=== PATIENT | female | born 1990 | race African-American/Black ===

== ENCOUNTER 2021-05-24 13:49 | Emergency (ER) | payer MEDICAID ==
[~2021-05-24] VITALS: Ht 172.7 cm; Wt 70.0 kg
[2021-05-24] MEDS ORDERED: ALBUTEROL (0.083%) 2.5MG/3ML NEB HHN ONE (15:00)
[2021-05-24] MEDS ORDERED: IPRATROPIUM BROMIDE (0.02%) 0.5MG/2.5ML NEB HHN ONE (15:00)
[2021-05-24] MEDS ORDERED: ACETAMINOPHEN 325MG TABLET PO STA (15:26)
[2021-05-24] MEDS ORDERED: SODIUM CHLORIDE 0.9% 1,000 ML IV ONE (15:30)
[2021-05-24 15:49] LABS: BASOPHILS % 0.7 % (0.0-2.0); EOSINOPHILS % 0.2 % (0.0-5.0); HEMATOCRIT. 34.4 % (36.0-48.0); HEMOGLOBIN. 10.4 g/dL (12.0-16.0); LYMPHOCYTES % 25.1 % (20.0-50.0); MEAN CORPUSCULAR HEMOGLOBIN 20.5 pg (28.0-32.0); MEAN CORPUSCULAR VOLUME 67.9 fL (81.0-99.0); MONOCYTES % 12.9 % (2.0-8.0); NEUTROPHILS % 61.1 % (40.0-76.0); PLATELET 266 x1000/uL (130-400); RED BLOOD CELL COUNT 5.07 mill/uL (4.2-5.4); RED CELL DISTRIBUTION WIDTH 20.1 % (11.6-14.6)
[2021-05-24 15:58] LABS: CHLORIDE 98 mEq/L (98-107)
[2021-05-24 16:02] LABS: ETHANOL BLOOD < 10 mg/dL
[2021-05-24 16:08] LABS: PLATELET ESTIMATE NORMAL
[2021-05-24 16:13] LABS: HCG SCREEN NEGATIVE
[2021-05-24] MEDS ORDERED: IPRATROPIUM/ALBUTEROL 0.5-3(2.5)MG/3ML NEB HHN ONE (16:30)
[2021-05-24] MEDS ORDERED: P20 MT (19:40)
[2021-05-24 20:22] VITALS: BP 110/69
== END 2021-05-24 20:45 | disposition home or self-care (01) ==
LOC: ER 14:07
DX: J45.901 Unspecified asthma with (acute) exacerbation (principal); F17.200 Nicotine dependence, unspecified, uncomplicated; E11.9 Type 2 diabetes mellitus without complications; I10 Essential (primary) hypertension
CPT/HCPCS: 36415; 71045; 71275; 80053; 80320; 83880; 84484; 84703; 85025; 85379; 93005; 94640; 99285; J7030; Z7610; G0480

== ENCOUNTER 2022-01-28 20:43 | Emergency (ER) | payer MEDICAID, OTHER ==
[~2022-01-28] VITALS: Ht 165.1 cm; Wt 65.0 kg
[~2022-01-28 20:43] MED LIST: P20 MT
[2022-01-28] MEDS ORDERED: ONDANSETRON HCL 4MG/2ML INJ IV STA (22:16)
[2022-01-28] MEDS ORDERED: MORPHINE SULFATE 4 MG/ML CPJ (NOT FOR IM USE) IV STA (22:16)
[2022-01-28] MEDS ORDERED: FAMOTIDINE 20MG/2ML VIAL IV STA (22:16)
[2022-01-28] MEDS ORDERED: SODIUM CHLORIDE 0.9% 1,000 ML IV ONE (22:30)
[2022-01-28 22:53] LABS: BG BASE EXCESS -4.3 mmol/L (-2.0-2.0); BG CARBOXYHEMOGLOBIN 2.2 % (0.5-1.5); BG DEOXYHEMOGLOBIN 1.8 % (0.0-5.0); BG FRACTION INSPIRED OXYGEN 21; BG HCO3 ACT 18.3 mmol/L (22.0-26.0); BG OXYGEN SATURATION 98.2 % (92.0-98.5); BG PCO2 26.2 mmHg (35.0-45.0); BG PH 7.462 (7.350-7.450); BG PO2 115.7 mmHg (75.0-100.0); BG SAMPLE SITE LEFT BRACHIAL; BG TOTAL HEMOGLOBIN 10.8 g/dL (12.0-18.0); BG VENT MODE ROOM AIR
[2022-01-28] MEDS ORDERED: ONDANSETRON HCL 4MG/2ML INJ IM ONE (23:00)
[2022-01-28] MEDS ORDERED: MORPHINE SULFATE 10 MG/ML CPJ IM NR (23:00)
[2022-01-28] MEDS ORDERED: FAMOTIDINE 20MG TABLET PO NR (23:00)
[2022-01-28 23:12] LABS: CHLORIDE 107 mEq/L (98-107)
[2022-01-28 23:20] LABS: BASOPHILS % 0.5 % (0.0-2.0); BETA HYDROXYBUTYRATE 0.1 mMol/L (0.0-0.3); EOSINOPHILS % 2.4 % (0.0-5.0); ETHANOL BLOOD < 10 mg/dL; HEMATOCRIT. 33.4 % (36.0-48.0); HEMOGLOBIN. 10.2 g/dL (12.0-16.0); LYMPHOCYTES % 18.4 % (20.0-50.0); MEAN CORPUSCULAR HEMOGLOBIN 19.2 pg (28.0-32.0); MEAN CORPUSCULAR VOLUME 63.2 fL (81.0-99.0); MEAN PLATELET VOLUME 8.4 fl (7.4-10.4); MONOCYTES % 5.7 % (2.0-8.0); PLATELET 319 x1000/uL (130-400); RED BLOOD CELL COUNT 5.28 mill/uL (4.2-5.4)
[2022-01-28 23:21] LABS: HCG SCREEN NEGATIVE
[2022-01-28 23:24] LABS: PLATELET ESTIMATE NORMAL
[2022-01-29] MEDS ORDERED: POTASSIUM CHLORIDE 20MEQ TABLET SR PO NR
[2022-01-29] MEDS ORDERED: ONDANSETRON HCL 4MG/2ML INJ IV STA (02:35)
[2022-01-29] MEDS ORDERED: KETOROLAC 30MG/ML VIAL IV STA (02:35)
[2022-01-29] MEDS ORDERED: SODIUM CHLORIDE 0.9% 1,000 ML IV ONE (02:45)
[2022-01-29 05:44] LABS: CLARITY URINE CLEAR (CLEAR); COLOR URINE YELLOW (YELLOW); KETONES URINE 3+ (NEGATIVE); LEUKOCYTE ESTERASE URINE NEGATIVE (NEGATIVE); NITRITE URINE NEGATIVE (NEGATIVE); OCCULT BLOOD URINE NEGATIVE (NEGATIVE); PROTEIN URINE TRACE (NEGATIVE); SPECIFIC GRAVITY URINE 1.026 (1.005-1.030); UROBILINOGEN URINE 0.2 E.U./dL (0.2-1.0)
[2022-01-29 05:58] LABS: *AMPHETAMINES SCREEN URINE NEGATIVE (NEGATIVE); *BARBITURATES SCREEN URINE NEGATIVE (NEGATIVE); *BENZODIAZEPINES SCREEN URINE NEGATIVE (NEGATIVE); *COCAINE SCREEN URINE NEGATIVE (NEGATIVE); METHADONE URINE SCREEN NEGATIVE (NEGATIVE); PHENCYCLIDINE URINE SCREEN NEGATIVE (NEGATIVE)
[2022-01-29 06:00] VITALS: BP 105/76
[2022-01-29 06:09] LABS: CANNABINOID URINE SCREEN PRESUMTIVE POSITIVE (NEGATIVE); OPIATES URINE SCREEN PRESUMTIVE POSITIVE (NEGATIVE)
[2022-01-29] MEDS ORDERED: INSULIN REGULAR (HUMULIN R) 300UNITS/3ML VIAL SUBCUT ONE (06:15)
== END 2022-01-29 08:21 | disposition short-term general hospital (02) ==
LOC: ER 20:43
DX: R10.13 Epigastric pain (principal); E87.6 Hypokalemia; D50.9 Iron deficiency anemia, unspecified; N20.0 Calculus of kidney
CPT/HCPCS: 36415; 36600; 71045; 74176; 80053; 80305; 80320; 81003; 82010; 82375; 82805; 82962; 83690; 84703; 85025; 93005; 96361; 96372; 96374; 96375; 96376; 99285; J1815; J1885; J2270; J2405; J3490; J7030; Z7610; G0480

== ENCOUNTER 2022-08-20 16:55 | Emergency (ER) | payer MEDICAID, OTHER ==
[~2022-08-20] VITALS: Ht 165.1 cm; Wt 70.0 kg
[2022-08-20 17:02] VITALS: BP 153/114
== END 2022-08-20 20:20 | disposition left against medical advice (07) ==
LOC: ER 16:55
DX: Z53.21 Procedure and treatment not carried out due to patient leaving prior to being seen by health care provider (principal)
CPT/HCPCS: 99281

== ENCOUNTER 2023-10-12 23:17 | Inpatient (IN) | payer MEDICAID, OTHER ==
[~2023-10-12] VITALS: Ht 170.2 cm; Wt 73.5 kg
[2023-10-12 23:20] VITALS: O2SAT 100
[2023-10-13] VITALS (33 sets, daily range): BP systolic 94–143; BP diastolic 59–96; PULSE 106–118; RESP 13–32; TEMP 98–98.8
[2023-10-13 00:40] LABS: HEMATOCRIT. 40.8 % (36.0-48.0); HEMOGLOBIN. 11.8 g/dL (12.0-16.0); MEAN CORPUSCULAR HEMOGLOBIN 25.2 pg (28.0-32.0); MEAN CORPUSCULAR HGB CONC 28.9 g/dL (31.0-37.0); MEAN CORPUSCULAR VOLUME 87.2 fL (81.0-99.0); MEAN PLATELET VOLUME 8.7 fl (7.4-10.4); PLATELET 398 x1000/uL (130-400); RED BLOOD CELL COUNT 4.68 mill/uL (4.2-5.4); RED CELL DISTRIBUTION WIDTH 16.3 % (11.6-14.6); WHITE BLOOD COUNT 24.3 x1000/uL (4.5-11.0)
[2023-10-13 00:41] LABS: DIFFERENTIAL COMMENT 1
[2023-10-13 00:47] LABS: CHLORIDE 98 mEq/L (98-107); POTASSIUM 5.4 mEq/L (3.5-5.1); SODIUM 126 mEq/L (136-145)
[2023-10-13 00:49] LABS: CALCIUM 10.4 mg/dL (8.7-10.4)
[2023-10-13 00:53] LABS: CREATININE 1.4 mg/dL (0.6-1.0)
[2023-10-13 00:54] LABS: UREA NITROGEN BLOOD 15 mg/dL (9-23)
[2023-10-13 00:55] LABS: ALANINE AMINOTRANSFERASE 22 IU/L (10-49); ALBUMIN 4.4 g/dL (3.2-4.8); ASPARTATE AMINOTRANSFERASE 27 IU/L (<34)
[2023-10-13 00:56] LABS: BILIRUBIN TOTAL 0.2 mg/dL (0.1-1.0); PROTEIN TOTAL 7.6 g/dL (6.0-8.3)
[2023-10-13 00:58] LABS: BILIRUBIN DIRECT < 0.1 mg/dL (<=3.0); ETHANOL BLOOD < 10 mg/dL (<10); TROPONIN I HIGH SENSITIVITY < 4 ng/L (3.0-34)
[2023-10-13 01:01] LABS: CARBON DIOXIDE < 10 mEq/L (21-32)
[2023-10-13 01:02] LABS: GLUCOSE 634 mg/dL (70-105)
[2023-10-13] MEDS: SODIUM CHLORIDE 0.9% 1,000 ML IV ONE ×3 (01:03→02:04)
[2023-10-13 01:04] LABS: HCG SCREEN NEGATIVE
[2023-10-13 01:05] LABS: BG BASE EXCESS -25.1 mmol/L (-2.0-2.0); BG CARBOXYHEMOGLOBIN 0.5 % (0.5-1.5); BG DEOXYHEMOGLOBIN 1.4 % (0.0-5.0); BG FRACTION INSPIRED OXYGEN 32; BG HCO3 ACT 2.8 mmol/L (22.0-26.0); BG METHEMOGLOBIN 0.3 % (0.0-1.5); BG OXYGEN SATURATION 98.6 % (92.0-98.5); BG OXYHEMOGLOBIN 97.8 % (94.0-97.0); BG PO2 146.3 mmHg (75.0-100.0); BG SAMPLE SITE RIGHT RADIAL; BG TOTAL HEMOGLOBIN 12.5 g/dL (12.0-18.0); BG VENT MODE NASAL CANNULA
[2023-10-13] MEDS: ONDANSETRON HCL 4MG/2ML INJ IV ONE (01:10)
[2023-10-13] MEDS: FAMOTIDINE 20MG/2ML VIAL IV ONE (01:10)
[2023-10-13] MEDS ORDERED: KCL 20MEQ/100ML PREMIX 100 ML IV PRN (01:30)
[2023-10-13] MEDS ORDERED: DEXTROSE 50% WATER 50ML SYRINGE IV PRN ×3 (01:30→15:45)
[2023-10-13] MEDS ORDERED: BLOOD SUGAR DIAGNOSTIC STRIP TEST PRN ×3 (01:30→15:45)
[2023-10-13] MEDS ORDERED: INSULIN REGULAR 100U/100ML PMX 100 ML IV ONE (01:30)
[2023-10-13] MEDS ORDERED: DEXT 5%/0.9% NACL 1,000 ML IV SCH (01:30)
[2023-10-13] MEDS: INSULIN REGULAR 100U/100ML PMX 100 ML IV SCH (02:04)
[2023-10-13] MEDS: CEFTRIAXONE 1GM/50ML 50 ML IV NR (03:10)
[2023-10-13] MEDS: SODIUM CHLORIDE 0.9% 1,000 ML IV SCH ×3 (03:20→16:20)
[2023-10-13] MEDS: DEXT 5%/0.9% NACL 1,000 ML IV SCH ×2 (03:29→15:45)
[2023-10-13 04:37] LABS: OVALOCYTES 1+; PLATELET ESTIMATE NORMAL
[2023-10-13 04:38] LABS: TOXIC VACUOLATION 1+
[2023-10-13] MEDS: MORPHINE SULFATE 2 MG/ML CPJ (NOT FOR IM USE) IV NR (04:45)
[2023-10-13] MEDS: MORPHINE SULFATE 2 MG/ML CPJ (NOT FOR IM USE) IV ONE (05:49)
[2023-10-13 07:47] LABS: HEMATOCRIT. 39.3 % (36.0-48.0); HEMOGLOBIN. 12.3 g/dL (12.0-16.0); MEAN CORPUSCULAR HEMOGLOBIN 24.6 pg (28.0-32.0); MEAN CORPUSCULAR HGB CONC 31.3 g/dL (31.0-37.0); MEAN CORPUSCULAR VOLUME 78.7 fL (81.0-99.0); MEAN PLATELET VOLUME 8.1 fl (7.4-10.4); PLATELET 359 x1000/uL (130-400); RED BLOOD CELL COUNT 4.99 mill/uL (4.2-5.4); RED CELL DISTRIBUTION WIDTH 15.3 % (11.6-14.6); WHITE BLOOD COUNT 26.9 x1000/uL (4.5-11.0)
[2023-10-13 07:50] LABS: DIFFERENTIAL COMMENT 1
[2023-10-13 08:39] LABS: MICROCYTOSIS 1+; PLATELET ESTIMATE NORMAL
[2023-10-13 12:01] LABS: CHLORIDE 115 mEq/L (98-107); POTASSIUM 4.1 mEq/L (3.5-5.1)
[2023-10-13 12:02] LABS: CHLORIDE 114 mEq/L (98-107); POTASSIUM 4.1 mEq/L (3.5-5.1)
[2023-10-13 12:03] LABS: CALCIUM 8.7 mg/dL (8.7-10.4)
[2023-10-13 12:08] LABS: CREATININE 0.8 mg/dL (0.6-1.0); GLUCOSE 245 mg/dL (70-105); UREA NITROGEN BLOOD 8 mg/dL (9-23)
[2023-10-13 12:10] LABS: PHOSPHORUS 1.7 mg/dL (2.5-4.9)
[2023-10-13 13:05] LABS: SODIUM 136 mEq/L (136-145)
[2023-10-13 13:55] LABS: SODIUM 135 mEq/L (136-145)
[2023-10-13] MEDS: PIPERACILLIN/TAZO 3.375G/50ML 50 ML IV SCH (14:39)
[2023-10-13 14:46] LABS: BG BASE EXCESS -18.2 mmol/L (-2.0-2.0); BG CARBOXYHEMOGLOBIN 0.1 % (0.5-1.5); BG DEOXYHEMOGLOBIN 1.5 % (0.0-5.0); BG FRACTION INSPIRED OXYGEN 28; BG HCO3 ACT 7.5 mmol/L (22.0-26.0); BG METHEMOGLOBIN 0.7 % (0.0-1.5); BG OXYGEN SATURATION 98.5 % (92.0-98.5); BG OXYHEMOGLOBIN 97.7 % (94.0-97.0); BG PCO2 19.3 mmHg (35.0-45.0); BG PH 7.208 (7.350-7.450); BG PO2 147.4 mmHg (75.0-100.0); BG SAMPLE SITE LEFT BRACHIAL; BG TOTAL HEMOGLOBIN 13.4 g/dL (12.0-18.0); BG VENT MODE NASAL CANNULA
[2023-10-13 15:39] LABS: CARBON DIOXIDE < 10 mEq/L (21-32)
[2023-10-13 15:43] LABS: CARBON DIOXIDE < 10 mEq/L (21-32)
[2023-10-13] MEDS ORDERED: MAGNESIUM 2 G PREMIX 50 ML IV PRN (15:45)
[2023-10-13] MEDS ORDERED: SODIUM PHOSPHATE 30 MMOL in SODIUM CHLORIDE 0.9% 490 ML IV PRN (15:45)
[2023-10-13] MEDS ORDERED: POTASSIUM CHLORIDE 40 MEQ in SODIUM CHLORIDE 0.9% 230 ML IV PRN (15:45)
[2023-10-13] MEDS: POTASSIUM PHOSPHATE 15 MMOL in DEXT 5% WATER 245 ML IV NR (15:50)
[2023-10-13] MEDS: MAGNESIUM 2 G PREMIX 50 ML IV NR (15:50)
[2023-10-13] MEDS: BLOOD SUGAR DIAGNOSTIC STRIP TEST SCH ×2 (16:03→18:05)
[2023-10-13 18:25] LABS: CARBON DIOXIDE 12 mEq/L (21-32); CHLORIDE 115 mEq/L (98-107); POTASSIUM 3.8 mEq/L (3.5-5.1); SODIUM 138 mEq/L (136-145)
[2023-10-13 18:26] LABS: CALCIUM 8.5 mg/dL (8.7-10.4)
[2023-10-13 18:30] LABS: CREATININE 0.8 mg/dL (0.6-1.0)
[2023-10-13 18:31] LABS: GLUCOSE 290 mg/dL (70-105); UREA NITROGEN BLOOD 7 mg/dL (9-23)
[2023-10-13 18:33] LABS: PHOSPHORUS 1.6 mg/dL (2.5-4.9)
[2023-10-13] MEDS: PANTOPRAZOLE SODIUM 40 MG/VIAL IV SCH (18:52)
[2023-10-13] MEDS: KCL 20MEQ/100ML PREMIX 100 ML IV PRN (18:52)
[2023-10-13] MEDS: DEXT 5%/0.9% NACL 1,000 ML IV PRN (19:29)
[2023-10-13 21:36] LABS: CHLORIDE 116 mEq/L (98-107); POTASSIUM 3.6 mEq/L (3.5-5.1); SODIUM 139 mEq/L (136-145)
[2023-10-13 21:37] LABS: CARBON DIOXIDE 15 mEq/L (21-32)
[2023-10-13 21:38] LABS: CALCIUM 8.3 mg/dL (8.7-10.4)
[2023-10-13 21:42] LABS: CREATININE 0.8 mg/dL (0.6-1.0); GLUCOSE 212 mg/dL (70-105); UREA NITROGEN BLOOD 7 mg/dL (9-23)
[2023-10-13 21:44] LABS: PHOSPHORUS 1.5 mg/dL (2.5-4.9)
[2023-10-13] MEDS ORDERED: INSULIN REGULAR 100U/100ML PMX 100 ML IV SCH (22:00)
[2023-10-13] MEDS: SODIUM PHOSPHATE 15 MMOL in SODIUM CHLORIDE 0.9% 245 ML IV PRN (23:41)
[2023-10-14] VITALS (91 sets, daily range): BP systolic 105–154; BP diastolic 51–126; PULSE 82–118; RESP 0–35; TEMP 97.9–99.2
[2023-10-14] MEDS: INSULIN REGULAR 100U/100ML PMX 100 ML IV SCH (00:16)
[2023-10-14] MEDS: ACETAMINOPHEN 325MG TABLET PO PRN (00:44)
[2023-10-14 02:16] LABS: CHLORIDE 118 mEq/L (98-107); POTASSIUM 3.3 mEq/L (3.5-5.1); SODIUM 142 mEq/L (136-145)
[2023-10-14 02:17] LABS: CARBON DIOXIDE 16 mEq/L (21-32)
[2023-10-14 02:28] LABS: PHOSPHORUS 0.6 mg/dL (2.5-4.9)
[2023-10-14] MEDS: SODIUM PHOSPHATE 30 MMOL in SODIUM CHLORIDE 0.9% 490 ML IV PRN (03:46)
[2023-10-14] MEDS: MAGNESIUM 1 G PREMIX 100 ML IV PRN (03:46)
[2023-10-14 04:47] LABS: HEMATOCRIT. 32.4 % (36.0-48.0); HEMOGLOBIN. 10.4 g/dL (12.0-16.0); MEAN CORPUSCULAR HGB CONC 31.9 g/dL (31.0-37.0); MEAN CORPUSCULAR VOLUME 78.3 fL (81.0-99.0); MEAN PLATELET VOLUME 7.9 fl (7.4-10.4); PLATELET 322 x1000/uL (130-400); RED BLOOD CELL COUNT 4.14 mill/uL (4.2-5.4); RED CELL DISTRIBUTION WIDTH 15.5 % (11.6-14.6); WHITE BLOOD COUNT 15.9 x1000/uL (4.5-11.0)
[2023-10-14 04:54] LABS: CHLORIDE 117 mEq/L (98-107); POTASSIUM 3.8 mEq/L (3.5-5.1); SODIUM 141 mEq/L (136-145)
[2023-10-14 04:55] LABS: CALCIUM 7.9 mg/dL (8.7-10.4); CARBON DIOXIDE 16 mEq/L (21-32)
[2023-10-14 05:00] LABS: CREATININE 0.6 mg/dL (0.6-1.0); GLUCOSE 187 mg/dL (70-105); UREA NITROGEN BLOOD 5 mg/dL (9-23)
[2023-10-14 05:02] LABS: PHOSPHORUS 1.6 mg/dL (2.5-4.9)
[2023-10-14 06:23] LABS: DIFFERENTIAL COMMENT 1
[2023-10-14 07:40] LABS: *AMPHETAMINES SCREEN URINE NEGATIVE (NEGATIVE); *BARBITURATES SCREEN URINE NEGATIVE (NEGATIVE); *BENZODIAZEPINES SCREEN URINE NEGATIVE (NEGATIVE); *COCAINE SCREEN URINE NEGATIVE (NEGATIVE); METHADONE URINE SCREEN NEGATIVE (NEGATIVE); OPIATES URINE SCREEN NEGATIVE (NEGATIVE)
[2023-10-14 07:41] LABS: CANNABINOID URINE SCREEN NEGATIVE (NEGATIVE); ECSTASY MDMA SCREEN URINE NEGATIVE (NEGATIVE); PHENCYCLIDINE URINE SCREEN NEGATIVE (NEGATIVE)
[2023-10-14 09:11] LABS: CHLORIDE 117 mEq/L (98-107); POTASSIUM 3.5 mEq/L (3.5-5.1); SODIUM 139 mEq/L (136-145)
[2023-10-14 09:12] LABS: CARBON DIOXIDE 15 mEq/L (21-32)
[2023-10-14 09:19] LABS: PHOSPHORUS 1.9 mg/dL (2.5-4.9)
[2023-10-14 09:54] LABS: MICROCYTOSIS 1+; PLATELET ESTIMATE NORMAL
[2023-10-14 09:55] LABS: ANISOCYTOSIS 1+
[2023-10-14 12:15] LABS: CALCIUM 7.9 mg/dL (8.7-10.4); CARBON DIOXIDE 16 mEq/L (21-32); CHLORIDE 114 mEq/L (98-107); POTASSIUM 3.6 mEq/L (3.5-5.1); SODIUM 137 mEq/L (136-145)
[2023-10-14 12:20] LABS: CREATININE 0.6 mg/dL (0.6-1.0); GLUCOSE 182 mg/dL (70-105)
[2023-10-14 12:23] LABS: PHOSPHORUS 1.1 mg/dL (2.5-4.9)
[2023-10-14 12:25] LABS: UREA NITROGEN BLOOD < 5 mg/dL (9-23)
[2023-10-14] MEDS: MAGNESIUM/ALUMINUM HYDROXIDE/SIMETHICONE 30ML UDC PO PRN (17:00)
[2023-10-14] MEDS: OMEPRAZOLE 20MG CAPSULE EXTENDED RELEASE PO SCH (17:00)
[2023-10-14] MEDS: KETOROLAC 30MG/ML VIAL IV PRN (17:06)
[2023-10-14 17:48] LABS: CHLORIDE 114 mEq/L (98-107); POTASSIUM 3.2 mEq/L (3.5-5.1); SODIUM 136 mEq/L (136-145)
[2023-10-14 17:49] LABS: CALCIUM 7.3 mg/dL (8.7-10.4); CARBON DIOXIDE 16 mEq/L (21-32)
[2023-10-14 17:54] LABS: CREATININE 0.5 mg/dL (0.6-1.0); GLUCOSE 222 mg/dL (70-105)
[2023-10-14 18:05] LABS: UREA NITROGEN BLOOD < 5 mg/dL (9-23)
[2023-10-14 18:06] LABS: PHOSPHORUS 0.7 mg/dL (2.5-4.9)
[2023-10-14] MEDS ORDERED: DEXTROSE 50% WATER 50ML SYRINGE IV PRN (18:15)
[2023-10-14] MEDS: INSULIN GLARGINE 100 UNITS/ML SUBCUT SCH (18:32)
[2023-10-14] MEDS: BLOOD SUGAR DIAGNOSTIC STRIP TEST SCH (21:43)
[2023-10-14 21:45] LABS: CHLORIDE 110 mEq/L (98-107); POTASSIUM 3.6 mEq/L (3.5-5.1); SODIUM 136 mEq/L (136-145)
[2023-10-14 21:46] LABS: CARBON DIOXIDE 18 mEq/L (21-32)
[2023-10-14 21:53] LABS: PHOSPHORUS 1.2 mg/dL (2.5-4.9)
[2023-10-14] MEDS: INSULIN LISPRO 100 UNITS/ML SUBCUT SCH (21:54)
[2023-10-14 22:17] LABS: CLARITY URINE CLEAR (CLEAR); COLOR URINE RED (YELLOW); GLUCOSE URINE 3+ (NEGATIVE); KETONES URINE 1+ (NEGATIVE); LEUKOCYTE ESTERASE URINE NEGATIVE (NEGATIVE); NITRITE URINE NEGATIVE (NEGATIVE); OCCULT BLOOD URINE 3+ (NEGATIVE); PROTEIN URINE TRACE (NEGATIVE); SPECIFIC GRAVITY URINE 1.022 (1.005-1.030); UROBILINOGEN URINE 0.2 E.U./dL (0.2-1.0)
[2023-10-14 22:46] LABS: BACTERIA URINE 1+; RBC URINE TNTC /hpf (0-2); SQUAMOUS EPITHELIAL CELL URINE 1+ /lpf (RARE/1+); WBC URINE 0-2 /hpf (0-2)
[2023-10-15] VITALS (47 sets, daily range): BP systolic 95–159; BP diastolic 75–117; PULSE 81–104; RESP 11–33; TEMP 98–99.3
[2023-10-15 05:41] LABS: CHLORIDE 112 mEq/L (98-107); POTASSIUM 3.2 mEq/L (3.5-5.1); SODIUM 137 mEq/L (136-145)
[2023-10-15 05:42] LABS: CALCIUM 7.4 mg/dL (8.7-10.4); CARBON DIOXIDE 19 mEq/L (21-32)
[2023-10-15 05:43] LABS: BASOPHILS % 0.3 % (0.0-2.0); DIFFERENTIAL COMMENT 0; EOSINOPHILS % 0.3 % (0.0-5.0); HEMATOCRIT. 28.5 % (36.0-48.0); HEMOGLOBIN. 9.1 g/dL (12.0-16.0); LYMPHOCYTES % 20.9 % (20.0-50.0); MEAN CORPUSCULAR HEMOGLOBIN 24.8 pg (28.0-32.0); MEAN CORPUSCULAR HGB CONC 31.9 g/dL (31.0-37.0); MEAN CORPUSCULAR VOLUME 77.8 fL (81.0-99.0); MEAN PLATELET VOLUME 7.9 fl (7.4-10.4); MONOCYTES % 12.5 % (2.0-8.0); PLATELET 262 x1000/uL (130-400); RED BLOOD CELL COUNT 3.67 mill/uL (4.2-5.4); RED CELL DISTRIBUTION WIDTH 15.3 % (11.6-14.6)
[2023-10-15 05:47] LABS: CREATININE 0.5 mg/dL (0.6-1.0); GLUCOSE 192 mg/dL (70-105)
[2023-10-15 05:49] LABS: UREA NITROGEN BLOOD < 5 mg/dL (9-23)
[2023-10-15 07:41] LABS: PHOSPHORUS 1.6 mg/dL (2.5-4.9)
[2023-10-15] MEDS: POTASSIUM CHLORIDE 40 MEQ in SODIUM CHLORIDE 0.9% 230 ML IV PRN (09:18)
[2023-10-15] MEDS: MAGNESIUM 2 G PREMIX 50 ML IV NR (11:00)
[2023-10-15] MEDS: ONDANSETRON HCL 4MG/2ML INJ IV PRN (13:37)
[2023-10-15] MEDS: METOCLOPRAMIDE HCL 10MG/2ML VIAL IV SCH (23:30)
[2023-10-16] VITALS (20 sets, daily range): BP systolic 98–169; BP diastolic 70–122; PULSE 77–124; RESP 8–34; TEMP 97.9–98.7
[2023-10-16 04:48] LABS: BASOPHILS % 0.4 % (0.0-2.0); DIFFERENTIAL COMMENT 0; EOSINOPHILS % 0.5 % (0.0-5.0); HEMATOCRIT. 28.1 % (36.0-48.0); HEMOGLOBIN. 9.3 g/dL (12.0-16.0); LYMPHOCYTES % 27.9 % (20.0-50.0); MEAN CORPUSCULAR HGB CONC 33.1 g/dL (31.0-37.0); MEAN CORPUSCULAR VOLUME 75.5 fL (81.0-99.0); MEAN PLATELET VOLUME 7.6 fl (7.4-10.4); MONOCYTES % 13.1 % (2.0-8.0); NEUTROPHILS % 58.1 % (40.0-76.0); PLATELET 280 x1000/uL (130-400); RED BLOOD CELL COUNT 3.72 mill/uL (4.2-5.4); WHITE BLOOD COUNT 10.4 x1000/uL (4.5-11.0)
[2023-10-16 04:52] LABS: CARBON DIOXIDE 24 mEq/L (21-32); CHLORIDE 108 mEq/L (98-107); SODIUM 138 mEq/L (136-145)
[2023-10-16 04:53] LABS: CALCIUM 7.8 mg/dL (8.7-10.4)
[2023-10-16 04:58] LABS: CREATININE 0.5 mg/dL (0.6-1.0); GLUCOSE 131 mg/dL (70-105)
[2023-10-16 05:31] LABS: UREA NITROGEN BLOOD < 5 mg/dL (9-23)
[2023-10-16 05:33] LABS: POTASSIUM 2.8 mEq/L (3.5-5.1)
[2023-10-16] MEDS: POTASSIUM CHLORIDE 20MEQ TABLET SR PO NR ×2 (11:03→12:30)
[2023-10-16] MEDS: MAGNESIUM 2 G PREMIX 50 ML IV NR (12:00)
[2023-10-16] MEDS: POTASSIUM PHOSPHATE 30 MMOL in SODIUM CHLORIDE 0.9% 490 ML IV NR (12:00)
[2023-10-16 16:11] LABS: POTASSIUM 3.8 mEq/L (3.5-5.1)
[2023-10-16 16:20] LABS: PHOSPHORUS 1.5 mg/dL (2.5-4.9)
[2023-10-16] MEDS: PANTOPRAZOLE 40MG DR TABLET PO NR (21:21)
[2023-10-17] VITALS (12 sets, daily range): BP systolic 118–165; BP diastolic 81–116; PULSE 84–118; RESP 13–23; TEMP 97.3–98.8
[2023-10-17] MEDS: PANTOPRAZOLE 40MG DR TABLET PO SCH (07:30)
[2023-10-17] MEDS: VANCOMYCIN 1.5GM/250ML 250 ML IV NR (14:00)
[2023-10-17] MEDS: VANCOMYCIN 1250MG in DEXTROSE 5% WATER 250ML IV SCH (20:50)
[2023-10-18] VITALS (13 sets, daily range): BP systolic 104–138; BP diastolic 75–99; PULSE 87–109; RESP 14–25; TEMP 97.2–98.5
[2023-10-18 07:42] LABS: BASOPHILS % 1.1 % (0.0-2.0); DIFFERENTIAL COMMENT 0; EOSINOPHILS % 2.2 % (0.0-5.0); HEMATOCRIT. 32.4 % (36.0-48.0); HEMOGLOBIN. 10.8 g/dL (12.0-16.0); LYMPHOCYTES % 25.1 % (20.0-50.0); MEAN CORPUSCULAR HEMOGLOBIN 24.8 pg (28.0-32.0); MEAN CORPUSCULAR HGB CONC 33.3 g/dL (31.0-37.0); MEAN CORPUSCULAR VOLUME 74.5 fL (81.0-99.0); MONOCYTES % 14.9 % (2.0-8.0); NEUTROPHILS % 56.7 % (40.0-76.0); PLATELET 484 x1000/uL (130-400); RED BLOOD CELL COUNT 4.34 mill/uL (4.2-5.4); RED CELL DISTRIBUTION WIDTH 15.6 % (11.6-14.6); WHITE BLOOD COUNT 11.9 x1000/uL (4.5-11.0)
[2023-10-18 07:53] LABS: CHLORIDE 104 mEq/L (98-107); POTASSIUM 3.9 mEq/L (3.5-5.1); SODIUM 137 mEq/L (136-145)
[2023-10-18 07:54] LABS: CALCIUM 8.5 mg/dL (8.7-10.4); CARBON DIOXIDE 23 mEq/L (21-32)
[2023-10-18 07:59] LABS: CREATININE 0.6 mg/dL (0.6-1.0); GLUCOSE 104 mg/dL (70-105)
[2023-10-18 08:06] LABS: UREA NITROGEN BLOOD < 5 mg/dL (9-23)
[2023-10-18] MEDS: DEXT 5%/0.45% NACL 1000ML 1,000 ML IV SCH (13:24)
[2023-10-18] MEDS: INSULIN GLARGINE 100 UNITS/ML SUBCUT NR (13:25)
[2023-10-18] MEDS ORDERED: LIDOCAINE HCL 1% 20ML VIAL (Pyxis) INJ ONE (16:00)
[2023-10-18] MEDS ORDERED: BUPIVACAINE HCL/PF 0.5% (5MG/ML) 10ML ONE (16:00)
[2023-10-18] MEDS ORDERED: FENTANYL CITRATE/PF 50MCG/ML 2ML VIAL ONE (19:32)
[2023-10-18] MEDS ORDERED: PROPOFOL 200MG/20ML VIAL IV ONE (19:32)
[2023-10-18] MEDS ORDERED: MIDAZOLAM HCL 2 MG/2 ML VIAL ONE (19:33)
[2023-10-18] MEDS ORDERED: FENTANYL CITRATE/PF 50MCG/ML 2ML VIAL IV PRN (19:45)
[2023-10-18] MEDS ORDERED: ONDANSETRON HCL 4MG/2ML INJ IV PRN (19:45)
[2023-10-18] MEDS ORDERED: HYDROMORPHONE HCL/PF 2MG/ML CPJ IV PRN (19:45)
[2023-10-19] VITALS (16 sets, daily range): BP systolic 106–148; BP diastolic 74–106; PULSE 87–128; RESP 8–25; TEMP 96.8–99
[2023-10-19 07:26] LABS: HEMATOCRIT 33.1 % (36.0-48.0); HEMOGLOBIN 10.8 g/dL (12.0-16.0); MEAN CORPUSCULAR HEMOGLOBIN 24.5 pg (28.0-32.0); MEAN CORPUSCULAR HGB CONC 32.5 g/dL (31.0-37.0); MEAN CORPUSCULAR VOLUME 75.3 fL (81.0-99.0); PLATELET 567 x1000/uL (130-400); RED CELL DISTRIBUTION WIDTH 15.7 % (11.6-14.6); WHITE BLOOD COUNT 13.1 x1000/uL (4.5-11.0)
[2023-10-19 07:40] LABS: POTASSIUM 4.4 mEq/L (3.5-5.1)
[2023-10-19 07:41] LABS: CALCIUM 8.6 mg/dL (8.7-10.4)
[2023-10-19 07:53] LABS: CREATININE 1.6 mg/dL (0.6-1.0)
[2023-10-19] MEDS: FAMOTIDINE 20MG TABLET PO SCH (09:40)
[2023-10-19] MEDS: SODIUM CHLORIDE 0.9% 1,000 ML IV SCH (18:47)
[2023-10-20] VITALS (10 sets, daily range): BP systolic 91–165; BP diastolic 61–107; PULSE 85–100; RESP 11–25; TEMP 98.1–99
[2023-10-20 07:10] LABS: HEMATOCRIT. 30.8 % (36.0-48.0); HEMOGLOBIN. 10.1 g/dL (12.0-16.0); MEAN CORPUSCULAR HEMOGLOBIN 24.9 pg (28.0-32.0); MEAN CORPUSCULAR HGB CONC 32.7 g/dL (31.0-37.0); MEAN CORPUSCULAR VOLUME 76.2 fL (81.0-99.0); MEAN PLATELET VOLUME 7.2 fl (7.4-10.4); PLATELET 533 x1000/uL (130-400); RED BLOOD CELL COUNT 4.04 mill/uL (4.2-5.4); RED CELL DISTRIBUTION WIDTH 15.5 % (11.6-14.6); WHITE BLOOD COUNT 10.9 x1000/uL (4.5-11.0)
[2023-10-20 07:12] LABS: DIFFERENTIAL COMMENT 1
[2023-10-20 07:13] LABS: CALCIUM 8.9 mg/dL (8.7-10.4); POTASSIUM 3.5 mEq/L (3.5-5.1)
[2023-10-20 07:19] LABS: CREATININE 1.3 mg/dL (0.6-1.0)
[2023-10-20 19:17] LABS: HYPOCHROMASIA 1+; MICROCYTOSIS 1+; PLATELET ESTIMATE INCREASED
[2023-10-21] VITALS: BP 116/79; PULSE 95; RESP 9
[2023-10-21 04:00] VITALS: BP 125/87; PULSE 85; RESP 9; TEMP 97.4
[2023-10-21 07:10] LABS: CHLORIDE 106 mEq/L (98-107); POTASSIUM 3.4 mEq/L (3.5-5.1); SODIUM 140 mEq/L (136-145)
[2023-10-21 07:11] LABS: CALCIUM 8.6 mg/dL (8.7-10.4); CARBON DIOXIDE 26 mEq/L (21-32)
[2023-10-21 07:16] LABS: CREATININE 1.3 mg/dL (0.6-1.0); GLUCOSE 86 mg/dL (70-105)
[2023-10-21 07:20] LABS: UREA NITROGEN BLOOD < 5 mg/dL (9-23)
[2023-10-21 08:00] VITALS: BP 139/103; PULSE 97; RESP 16; TEMP 98.6
[2023-10-21 12:17] VITALS: BP 140/81; PULSE 88; RESP 20; TEMP 98.1
[2023-10-21] MEDS: VANCOMYCIN 1GM/200ML PMX (BAXTER) IV SCH (13:12)
== END 2023-10-21 15:58 | disposition home health service (06) | DRG 363 ==
LOC: ER 23:17 → MICUNO 10-13 02:37 → EDBEDREQ 10-13 03:12 → MICUNO 10-13 14:59 → 5EST 10-16 11:55 → 6WST 10-21 11:55
PROVIDERS: ADMIT Internal Medicine; ATTEND Internal Medicine
PROC: 0HBU0ZX Excision of Left Breast, Open Approach, Diagnostic (ICD-10-PCS; principal; 2023-10-18)
DX: N61.1 Abscess of the breast and nipple (principal); A41.9 Sepsis, unspecified organism; E11.10 Type 2 diabetes mellitus with ketoacidosis without coma; E87.1 Hypo-osmolality and hyponatremia; J45.909 Unspecified asthma, uncomplicated; N18.9 Chronic kidney disease, unspecified; E11.22 Type 2 diabetes mellitus with diabetic chronic kidney disease; I12.9 Hypertensive chronic kidney disease with stage 1 through stage 4 chronic kidney disease, or unspecified chronic kidney disease; E86.0 Dehydration; E87.5 Hyperkalemia; Z79.4 Long term (current) use of insulin
CPT/HCPCS: 36415; 36600; 71045; 76641; 80048; 80051; 80076; 80202; 80305; 80320; 81003; 82375; 82805; 82962; 83036; 83735; 83880; 83930; 84100; 84132; 84145; 84484; 84703; 85025; 85027; 87070; 87075; 87077; 87186; 88305; 93005; 99291; A6261; C1893; C9113; J0696; J1815; J1885; J2250; J2270; J2405; J2543; J2704; J2765; J3010; J3370; J3475; J3480; J3490; J7030; J7040; J7050; J7060; G0480

== ENCOUNTER 2024-05-22 10:54 | Emergency (ER) | payer MEDICAID ==
[~2024-05-22] VITALS: Ht 157.5 cm; Wt 59.0 kg
[2024-05-22 11:00] VITALS: BP 129/97; PULSE 105; RESP 16; TEMP 98; O2SAT 100
[2024-05-22] MEDS ORDERED: DIAZEPAM 5 MG/ML 2ML SYR IV ONE (11:15)
[2024-05-22] MEDS ORDERED: SODIUM CHLORIDE 0.9% 1,000 ML IV ONE (11:15)
== END 2024-05-23 00:02 | disposition home or self-care (01) ==
LOC: ER 10:54
DX: R25.2 Cramp and spasm (principal); E11.9 Type 2 diabetes mellitus without complications; J45.909 Unspecified asthma, uncomplicated; F19.90 Other psychoactive substance use, unspecified, uncomplicated
CPT/HCPCS: 99283; J7030

== ENCOUNTER 2024-11-12 10:49 | Inpatient (IN) | payer MEDICAID ==
[~2024-11-12] VITALS: Ht 165.1 cm; Wt 58.1 kg
[~2024-11-12 10:49] MED LIST changes: +INSU100I28 SQ; +INSU100V34 SQ; +METF500S9 PO; +ONDA4TAB50 PO; -P20 MT
[2024-11-12 11:19] VITALS: PULSE 109; RESP 22; O2SAT 99
[2024-11-12] MEDS: IPRATROPIUM BROMIDE (0.02%) 0.5MG/2.5ML NEB HHN STA (11:19)
[2024-11-12] MEDS: ALBUTEROL (0.083%) 2.5MG/3ML NEB HHN STA (11:19)
[2024-11-12] MEDS: METHYLPREDNISOLONE SOD SUCC 125MG/2ML (ACT-O-VIAL) IV STA (11:47)
[2024-11-12] MEDS: MAGNESIUM 2 G PREMIX 50 ML IV ONE (11:47)
[2024-11-12 11:55] LABS: BASOPHILS % 0.8 % (0.0-2.0); EOSINOPHILS % 5.1 % (0.0-5.0); HEMATOCRIT. 34.9 % (36.0-48.0); HEMOGLOBIN. 10.7 g/dL (12.0-16.0); LYMPHOCYTES % 45.2 % (20.0-50.0); MEAN CORPUSCULAR HEMOGLOBIN 20.2 pg (28.0-32.0); MEAN CORPUSCULAR HGB CONC 30.5 g/dL (31.0-37.0); MEAN CORPUSCULAR VOLUME 66.2 fL (81.0-99.0); MEAN PLATELET VOLUME 8.8 fl (7.4-10.4); MONOCYTES % 7.3 % (2.0-8.0); NEUTROPHILS % 41.6 % (40.0-76.0); PLATELET 232 x1000/uL (130-400); RED BLOOD CELL COUNT 5.28 mill/uL (4.2-5.4); RED CELL DISTRIBUTION WIDTH 20.8 % (11.6-14.6); WHITE BLOOD COUNT 6.4 x1000/uL (4.5-11.0)
[2024-11-12 11:56] LABS: ADD RBC MORPHOLOGY YES; DIFFERENTIAL COMMENT 1
[2024-11-12 12:08] LABS: CHLORIDE 97 mEq/L (98-107); POTASSIUM 3.7 mEq/L (3.5-5.1); SODIUM 134 mEq/L (136-145)
[2024-11-12 12:09] LABS: CALCIUM 9.1 mg/dL (8.7-10.4); CARBON DIOXIDE 22 mEq/L (21-32)
[2024-11-12 12:14] LABS: CREATININE 0.8 mg/dL (0.6-1.0); GLUCOSE 353 mg/dL (70-105); UREA NITROGEN BLOOD 12 mg/dL (9-23)
[2024-11-12 12:16] LABS: TROPONIN I HIGH SENSITIVITY < 4 ng/L (3.0-34)
[2024-11-12 12:31] LABS: ANISOCYTOSIS 2+; HYPOCHROMASIA 2+; MICROCYTOSIS 3+; PLATELET ESTIMATE NORMAL
[2024-11-12 12:32] LABS: GIANT PLATELETS FEW
[2024-11-12 13:42] LABS: HCG SCREEN NEGATIVE
[2024-11-12 14:20] VITALS: BP 109/58; PULSE 118; RESP 20; TEMP 36.7; O2SAT 99
[2024-11-12] MEDS ORDERED: IPRATROPIUM/ALBUTEROL 0.5-3(2.5)MG/3ML NEB HHN PRN (14:30)
[2024-11-12 14:38] VITALS: BP 109/58; PULSE 118; RESP 20; TEMP 36.7
[2024-11-12] MEDS ORDERED: DEXTROSE 50% WATER 50ML SYRINGE IV PRN (14:45)
[2024-11-12] MEDS ORDERED: NALOXONE HCL 0.4MG/ML VIAL IV PRN (14:45)
[2024-11-12] MEDS: HYDROCODONE/ACETAMINOPHEN 5/325MG TABLET PO PRN (15:49)
[2024-11-12] MEDS: ONDANSETRON HCL 4MG/2ML INJ IV PRN (15:50)
[2024-11-12 16:00] VITALS: BP 112/64; PULSE 117; RESP 20; TEMP 36.6; O2SAT 100
[2024-11-12 16:05] LABS: TROPONIN I HIGH SENSITIVITY < 4 ng/L (3.0-34)
[2024-11-12] MEDS: INSULIN LISPRO 100 UNITS/ML SUBCUT SCH ×2 (16:50→16:54)
[2024-11-12] MEDS: INSULIN GLARGINE 100 UNITS/ML SUBCUT SCH (16:51)
[2024-11-12] MEDS: BLOOD SUGAR DIAGNOSTIC STRIP TEST SCH (16:53)
[2024-11-12] MEDS: ENOXAPARIN 40MG/0.4ML SYR SUBCUT SCH (16:53)
[2024-11-12] MEDS: ACETAMINOPHEN 325MG TABLET PO PRN (18:19)
[2024-11-12 20:00] VITALS: BP_SYST 130; BP_SYST 137; BP_DIAS 95; PULSE 98; RESP 18; TEMP 36.3; O2SAT 100
[2024-11-13] VITALS (7 sets, daily range): BP systolic 116–138; BP diastolic 74–100; PULSE 86–111; RESP 16–20; TEMP 35.8–36.9; O2SAT 95–100
[2024-11-13 00:32] LABS: CREATINE KINASE MB FRACTION 0.5 ng/mL (0.5-3.6); TROPONIN I HIGH SENSITIVITY < 4 ng/L (3.0-34)
[2024-11-13 00:33] LABS: CREATINE KINASE 65 IU/L (34-145)
[2024-11-13 08:28] LABS: BASOPHILS % 0.3 % (0.0-2.0); EOSINOPHILS % 0.3 % (0.0-5.0); HEMATOCRIT. 30.9 % (36.0-48.0); HEMOGLOBIN. 9.6 g/dL (12.0-16.0); LYMPHOCYTES % 40.3 % (20.0-50.0); MEAN CORPUSCULAR HEMOGLOBIN 19.8 pg (28.0-32.0); MEAN CORPUSCULAR HGB CONC 30.9 g/dL (31.0-37.0); MEAN PLATELET VOLUME 8.7 fl (7.4-10.4); MONOCYTES % 8.4 % (2.0-8.0); NEUTROPHILS % 50.7 % (40.0-76.0); PLATELET 242 x1000/uL (130-400); RED BLOOD CELL COUNT 4.84 mill/uL (4.2-5.4); RED CELL DISTRIBUTION WIDTH 20.5 % (11.6-14.6); WHITE BLOOD COUNT 9.3 x1000/uL (4.5-11.0)
[2024-11-13 08:36] LABS: CARBON DIOXIDE 28 mEq/L (21-32); CHLORIDE 100 mEq/L (98-107); POTASSIUM 3.8 mEq/L (3.5-5.1); SODIUM 138 mEq/L (136-145)
[2024-11-13 08:37] LABS: CALCIUM 9.6 mg/dL (8.7-10.4)
[2024-11-13 08:40] LABS: CREATINE KINASE MB FRACTION < 0.5 ng/mL (0.5-3.6); TROPONIN I HIGH SENSITIVITY < 4 ng/L (3.0-34)
[2024-11-13 08:41] LABS: CREATININE 0.8 mg/dL (0.6-1.0); GLUCOSE 162 mg/dL (70-105)
[2024-11-13 08:42] LABS: LDL CHOLESTEROL 119 mg/dL (5-100); TRIGLYCERIDE 68 mg/dL (0-150); UREA NITROGEN BLOOD 12 mg/dL (9-23)
[2024-11-13 08:44] LABS: CHOLESTEROL 151 mg/dL (<200); CREATINE KINASE 70 IU/L (34-145); HDL CHOLESTEROL 42 mg/dL (>65)
[2024-11-13 08:50] LABS: DIFFERENTIAL COMMENT 1
[2024-11-13 08:51] LABS: ADD RBC MORPHOLOGY NO
[2024-11-13] MEDS: METHYLPREDNISOLONE SOD SUCC 40MG/ML (ACT-O-VIAL) IV SCH (16:35)
== END 2024-11-14 01:00 | disposition home or self-care (01) | DRG 141 ==
LOC: ER 10:49 → 7WST 12:35
PROVIDERS: ADMIT Internal Medicine; ATTEND Internal Medicine
DX: J45.901 Unspecified asthma with (acute) exacerbation (principal); E11.65 Type 2 diabetes mellitus with hyperglycemia; I10 Essential (primary) hypertension; Z79.4 Long term (current) use of insulin; Z79.84 Long term (current) use of oral hypoglycemic drugs; Z98.891 History of uterine scar from previous surgery; R07.81 Pleurodynia
CPT/HCPCS: 36415; 71045; 80048; 80061; 82550; 82553; 82962; 83036; 83880; 84484; 84703; 85025; 85379; 93005; 94070; 94640; 94664; 98960; 99285; A4606; J1650; J1815; J2405; J2919; J3475

== ENCOUNTER 2024-11-27 19:54 | Emergency (ER) | payer MEDICAID ==
[~2024-11-27] VITALS: Ht 162.6 cm; Wt 50.0 kg
[2024-11-27 20:05] VITALS: BP 124/80; PULSE 114; RESP 18; TEMP 36.8; O2SAT 100
== END 2024-11-27 22:08 | disposition left against medical advice (07) ==
LOC: ER 20:02
DX: R05.9 Cough, unspecified (principal); Z53.21 Procedure and treatment not carried out due to patient leaving prior to being seen by health care provider